=== PATIENT | female | born 1970 | race Caucasian/White ===

== ENCOUNTER 2017-03-05 12:33 | Inpatient (IN) | payer SELFPAY ==
[2017-03-05] VITALS (11 sets, daily range): BP systolic 103–117; BP diastolic 52–67; PULSE 62–102; RESP 16–20; TEMP 97.7–99; O2SAT 96–100
[~2017-03-05] VITALS: Ht 170.2 cm; Wt 63.9 kg
[2017-03-05] MEDS ORDERED: SODIUM CHLOR 0.9% 1000 ML INJ 1,000 ML IV ONE (13:30)
[2017-03-05 13:46] LABS: AUTOMATED NEUTROPHIL # 2.4 TH/MM3 (1.8-7.7); BASOPHIL # 0.1 TH/MM3 (0-0.2); BASOPHIL % 1.7 % (0.0-2.0); EOSINOPHIL # 0.3 TH/MM3 (0-0.4); HEMATOCRIT 22.4 % (35.0-46.0); LYMPHOCYTE # 2.4 TH/MM3 (1.0-4.8); MEAN CELL VOLUME 66.8 FL (80.0-100.0); MEAN CORPUSCULAR HEMOGLOBIN 20.2 PG (27.0-34.0); MEAN CORPUSCULAR HGB CONC 30.3 % (32.0-36.0); MONO % 7.7 % (0.0-8.0); NEUT % 42.6 % (16.0-70.0); PLATELET COUNT 246 TH/MM3 (150-450); RED BLOOD COUNT 3.36 MIL/MM3 (4.00-5.30); RED CELL DISTRIBUTION WIDTH 20.6 % (11.6-17.2); WHITE BLOOD COUNT 5.6 TH/MM3 (4.0-11.0)
[2017-03-05 13:49] LABS: HEMO FLAGS DIFF FINAL
[2017-03-05] MEDS ORDERED: SODIUM CHLOR 0.9% 250 ML INJ 250 ML IV ONE (14:00)
[2017-03-05 14:05] LABS: ALT (GPT) 19 U/L (10-53); ANION GAP 12 MEQ/L (5-15); AST (GOT) 22 U/L (15-37); BICARBONATE 23.2 MEQ/L (21.0-32.0); BLOOD UREA NITROGEN 4 MG/DL (7-18); CHLORIDE 91 MEQ/L (98-107); GLOMERULAR FILTRATION RATE 122 ML/MIN (>89); POTASSIUM 3.5 MEQ/L (3.5-5.1); SODIUM (NA) 126 MEQ/L (136-145)
[2017-03-05 14:07] LABS: ALKALINE PHOSPHATASE 73 U/L (45-117); TOTAL BILIRUBIN ADULT 0.3 MG/DL (0.2-1.0)
--- NOTE | 2017-03-05 14:36 | PD ---
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 She says she has had bleeding for the past 2 months. She says since last night, she has used 40 pads and 18 tampons. She says she feels lightheaded when standing. She says she does feel her heart racing. She denies any pain. She has required 2 blood transfusions in the past due to heavy bleeding. She does not have a hand cementer due to insurance issues. FORMERLY [facility] Past Medical History Medical History: Denies Significant Hx Diminished Hearing: No Tetanus Vaccination: > 5 Years Influenza Vaccination: No ?: Not LMP: 03/05/17 Past Surgical History Gynecologic Surgery: Yes (OVERY REMOVAL) Social History Alcohol Use: Yes (2 BEERS DAILY) Tobacco Use: Yes (1/2 PPD) Substance Use: No Allergies-Medications (Allergen,Severity, Reaction): Coded Allergies: No Known Allergies (Unverified , 03/05/17) Review of Systems Except as stated in HPI: all other systems reviewed are Neg General / Constitutional: No: Fever, Chills Eyes: No: Blurred Vision HENT: Positive: Lightheadedness, No: Headaches Cardiovascular: Positive: Palpitations Respiratory: No: Shortness of Breath Gastrointestinal: No: Nausea, Vomiting, Abdominal Pain Genitourinary: Positive: Vaginal Bleeding Skin: No Rash, No Change in Pigmentation Neurologic: Positive: Weakness, Dizziness Physical Exam Narrative GENERAL: Awake and alert, in no acute distress. SKIN: Focused skin assessment warm/dry. HEAD: Atraumatic. Normocephalic. EYES: Pupils equal and round. No scleral icterus. Conjunctival pallor. ENT: Mucous membranes pink and moist. NECK: Trachea midline. No JVD. CARDIOVASCULAR: Tachycardia. No murmur appreciated. RESPIRATORY: No accessory muscle use. Clear to auscultation. Breath sounds equal bilaterally. GASTROINTESTINAL: Abdomen soft, non-tender, nondistended. : Performed in the presence of a female nurse. Cervical polyp present. Blood in the vaginal vault. Mild bleeding from the os. MUSCULOSKELETAL: No obvious deformities. No clubbing. No cyanosis. No edema. NEUROLOGICAL: Awake and alert. No obvious cranial nerve deficits. Motor grossly within normal limits. Normal speech. PSYCHIATRIC: Appropriate mood and affect; insight and judgment normal. Data Data Last Documented VS Vital Signs Date Time Temp Pulse Resp B/P Pulse Ox O2 Delivery O2 Flow Rate FiO2 03/05/17 14:00 83 16 113/57 96 Room Air 03/05/17 12:35 97.7 Orders Complete Blood Count With Diff (03/05/17 13:17) Comprehensive Metabolic Panel (03/05/17 13:17) Iv Access Insert/Monitor (03/05/17 13:17) Sodium Chlor 0.9% 1000 Ml Inj (Ns 1000 M (03/05/17 13:30) Type And Screen (03/05/17 13:19) Ed Urine Pregnancytest Poc (03/05/17 13:19) Red Blood Cells (Rbc) (03/05/17 13:58) Blood Product Administration .UPON TRANSFUSION (03/05/17 13:58) Sodium Chlor 0.9% 250 Ml Inj (Ns 250 Ml (03/05/17 14:00) Labs Laboratory Tests Test 03/05/17 13:30 White Blood Count 5.6 TH/MM3 Red Blood Count 3.36 MIL/MM3 Hemoglobin 6.8 GM/DL Hematocrit 22.4 % Mean Corpuscular Volume 66.8 FL Mean Corpuscular Hemoglobin 20.2 PG Mean Corpuscular Hemoglobin 30.3 % Concent Red Cell Distribution Width 20.6 % Platelet Count 246 TH/MM3 Mean Platelet Volume 7.4 FL Neutrophils (%) (Auto) 42.6 % Lymphocytes (%) (Auto) 43.0 % Monocytes (%) (Auto) 7.7 % Eosinophils (%) (Auto) 5.0 % Basophils (%) (Auto) 1.7 % Neutrophils # (Auto) 2.4 TH/MM3 Lymphocytes # (Auto) 2.4 TH/MM3 Monocytes # (Auto) 0.4 TH/MM3 Eosinophils # (Auto) 0.3 TH/MM3 Basophils # (Auto) 0.1 TH/MM3 CBC Comment DIFF FINAL Differential Comment Sodium Level 126 MEQ/L Potassium Level 3.5 MEQ/L Chloride Level 91 MEQ/L Carbon Dioxide Level 23.2 MEQ/L Anion Gap 12 MEQ/L Blood Urea Nitrogen 4 MG/DL Creatinine 0.54 MG/DL Estimat Glomerular Filtration 122 ML/MIN Rate Random Glucose 81 MG/DL Calcium Level 8.1 MG/DL Total Bilirubin 0.3 MG/DL Aspartate Amino Transf 22 U/L (AST/SGOT) Alanine Aminotransferase 19 U/L (ALT/SGPT) Alkaline Phosphatase 73 U/L Total Protein 6.4 GM/DL Albumin 3.1 GM/DL Blood Type O POSITIVE MDM Medical Decision Making Medical Screen Exam Complete: Yes Emergency Medical Condition: Yes Differential Diagnosis anemia vs dysmenorrhea vs dehydration Narrative Course Patient is a 47-year-old female who comes in complaining of vaginal bleeding. Exam shows a cervical polyp. IV established, labs sent. Labs show hemoglobin of 6.8. Patient given IV fluids and transfused 2 units of blood. She'll be admitted for further management. Diagnosis Primary Impression: Vaginal bleeding Additional Impression: Anemia Qualified Code: D64.9 - Anemia, unspecified type Admitting Information Admitting Physician Requests: Admit Condition: Stable Marla Blakely MD Mar 05, 2017 14:36
[2017-03-05] MEDS ORDERED: IBUP200T2 PO (14:55)
[2017-03-05] MEDS ORDERED: HYDR-3533 PO (14:55)
[2017-03-05] MEDS ORDERED: SILVER NITR/POTASSIUM NITRATE APPLICATORS TOPICAL ONE (15:15)
[2017-03-05] MEDS ORDERED: SILVER NITR/POTASSIUM NITRATE APPLICATORS ONE (15:20)
--- NOTE | 2017-03-05 15:59 | HHI.HP ---
HPI Chief Complaint Abnormal vaginal bleeding Date Seen: Mar 05, 2017 Travel History International Travel<30 Days: No Contact w/Intl Traveler<30Days: No Known Affected Area: No History of Present Illness HPI Patient is 47-year-old white female who presents to the main ER today with abnormal uterine bleeding. She's been bleeding heavily last several days passing large clots fist size and feeling weak. Patient states that she's almost never had a regular monthly cycle she's always had irregular bleeding and that the she will bleed almost and the continually at times and she has bled daily for the last 2 months of some days very little some days a lot ,. Was admitted 4 or 5 years ago for anemia for the same thing received blood transfusion and she's not had that happen since. She's having only very minimal discomfort she describes is uncomfortable no real pain, last SANITATION OFFICER exam and Pap smear was also 5 years ago, states she had a cervical polyp the back at that time and it was removed and at that time they saw another polyp was very small and it did not remove it .Today the ER doctor saw a polyp as well. Patient's hemoglobin is a little over 6 and she is ordered blood waiting to give Para: 2 : 2 History Past Medical History Narrative Medical Has a history of long-term abnormal uterine bleeding Medical History: Denies Significant Hx Obstetric History Obstetric History 2 vaginal deliveries Past Surgical History Narrative Surgical Patient had 1 ovary removed [she can't remember which one] when she was 16 years old for a cyst Social History Alcohol Use: Yes Tobacco Use: Yes Substance Abuse: No Allergies-Medications (Allergen,Severity, Reaction): Coded Allergies: No Known Allergies (Unverified , 03/05/17) Home Meds Reported Medications Hydrocodone-Acetaminophen (Lortab)5-325 Mg Tab0.5 Tab PO Q6H PRN (PAIN) Ref 0 03/05/17 Ibuprofen 200 Mg [id number] Mg PO DAILY PRN (CRAMPING) Ref 0 03/05/17 Review of Systems General / Constitutional: No: Fever, Weight Gain, Chills, Other Eyes: No: Diploplia, Blurred Vision, Visual changes, Pain, Photophobia HENT: No: Headaches, Vertigo, Lightheadedness Cardiovascular: No: Irregular Rhythm, Chest Pain or Discomfort, Palpitations, Tachycardia, Syncope, Varicosities, Edema, Cyanosis Respiratory: No: Cough, Short of Breath, Other Gastrointestinal: No: Nausea, Vomiting, Diarrhea Genitourinary: Vaginal Bleeding, No: Decreased Urinary Output, Oliguria Musculoskeletal: No: Limited ROM, Weakness, Cramping, Edema, Pain Skin: No Rash, No Itching, No Dryness, No Lumps, No Change in Pigmentation, No Change in Nails, No Alopecia, No Lesions Neurologic: No: Weakness, Dizziness, Syncope, Focal Abnormalities, Coordination Problem, Headache, Slurred Speech, Seizures Psychiatric: No: Depression, Suicidal Ideations, Homicidal Ideation Endocrine: No: Heat Intolerance, Cold Intolerance, Polydipsia, Polyuria, Other Physical Exam Vital Signs Date Time Temp Pulse Resp B/P Pulse Ox O2 Delivery O2 Flow Rate FiO2 03/05/17 14:00 83 16 113/57 96 Room Air 03/05/17 12:35 97.7 102 20 115/66 100 Room Air Narrative GENERAL: Well-nourished, well-developed patient. SKIN: Warm and dry. HEAD: Normocephalic and atraumatic. EYES: No scleral icterus. No injection or drainage. ENT: No nasal drainage noted. Mucous membranes pink. Airway patent. NECK: Supple, trachea midline. No JVD. CARDIOVASCULAR: Regular rate and rhythm without murmurs, gallops, or rubs. RESPIRATORY: Breath sounds equal bilaterally. No accessory muscle use. BREASTS: Bilateral exam showed no masses , no retractions, no nipple discharge. ABDOMEN/GI: Abdomen soft, non-tender, bowel sounds present, no rebound, no guarding has a well-healed Pfannenstiel incision External Genitalia: intact and normal in appearance There is a small amount of dark blood in the vagina Cervix: Cervix has a polyp at 12:00 that's approximate 1 cm in size and not inflamed smooth normal color A ring forcep used to grasp the polyp and with a twisting motion remove the polyp from the anterior cervix and this was sent to pathology, the base of this area was oozing some blood and some silver nitrate sticks used to achieve hemostasis. Bimanual exam the uterus is anteflexed normal size and minimally tender with no adnexal masses or fullness. Rectal exam was deferred ] EXTREMITIES: No cyanosis or edema. BACK: Nontender without obvious deformity. No CVA tenderness. NEUROLOGICAL: Awake and alert. Motor and sensory grossly within normal limits. Five out of 5 muscle strength in all muscle groups. Normal speech. Data Data Orders Complete Blood Count With Diff (03/05/17 13:17) Comprehensive Metabolic Panel (03/05/17 13:17) Iv Access Insert/Monitor (03/05/17 13:17) Sodium Chlor 0.9% 1000 Ml Inj (Ns 1000 M (03/05/17 13:30) Type And Screen (03/05/17 13:19) Ed Urine Pregnancytest Poc (03/05/17 13:19) Red Blood Cells (Rbc) (03/05/17 13:58) Blood Product Administration .UPON TRANSFUSION (03/05/17 13:58) Sodium Chlor 0.9% 250 Ml Inj (Ns 250 Ml (03/05/17 14:00) Admit Order (Ed Use Only) (03/05/17 ) Silver Nitrate Applicators (Silver Nitra (03/05/17 15:15) Silver Nitrate Applicators (Silver Nitra (03/05/17 15:20) Labs Laboratory Tests Test 03/05/17 03/05/17 03/05/17 13:30 13:58 15:10 White Blood Count 5.6 Red Blood Count 3.36 Hemoglobin 6.8 Hematocrit 22.4 Mean Corpuscular Volume 66.8 Mean Corpuscular Hemoglobin 20.2 Mean Corpuscular Hemoglobin 30.3 Concent Red Cell Distribution Width 20.6 Platelet Count 246 Mean Platelet Volume 7.4 Neutrophils (%) (Auto) 42.6 Lymphocytes (%) (Auto) 43.0 Monocytes (%) (Auto) 7.7 Eosinophils (%) (Auto) 5.0 Basophils (%) (Auto) 1.7 Neutrophils # (Auto) 2.4 Lymphocytes # (Auto) 2.4 Monocytes # (Auto) 0.4 Eosinophils # (Auto) 0.3 Basophils # (Auto) 0.1 CBC Comment DIFF FINAL Differential Comment Sodium Level 126 Potassium Level 3.5 Chloride Level 91 Carbon Dioxide Level 23.2 Anion Gap 12 Blood Urea Nitrogen 4 Creatinine 0.54 Estimat Glomerular Filtration 122 Rate Random Glucose 81 Calcium Level 8.1 Total Bilirubin 0.3 Aspartate Amino Transf 22 (AST/SGOT) Alanine Aminotransferase 19 (ALT/SGPT) Alkaline Phosphatase 73 Total Protein 6.4 Albumin 3.1 Blood Type O POSITIVE O POSITIVE Antibody Screen NEGATIVE Crossmatch Leukocyte-Reduced Red Blood Cells Blood Bank Comment Assessment/Plan Assessment and Plan 47-year-old white female with long history of abnormal uterine bleeding now with excessive vaginal bleeding the point of anemia hemoglobin of 6.8 patient is admission for blood transfusion, will observe for bleeding right now not bleeding actively if bleeding is moderately excessive will give IV Premarin. Will check ultrasound of the uterus and adnexa, will check CBC in the morning Parvez Argueta II, MD Mar 05, 2017 15:59
[2017-03-05] MEDS ORDERED: ACETAMINOPHEN/HYDROcodone 325 MG/5 MG TAB PO PRN (16:15)
[2017-03-05] MEDS ORDERED: ONDANSETRON HCL 4 MG/2 ML VIAL IV PUSH PRN (16:15)
[2017-03-05] MEDS: FERROUS SULFATE 325 MG (65 MG ELEMENTAL IRON) TAB PO SCH (18:00)
[2017-03-06] VITALS: BP 106/55; PULSE 80; RESP 16; TEMP 98; O2SAT 98
[2017-03-06 04:00] VITALS: BP 102/58; PULSE 76; RESP 17; TEMP 98.8; O2SAT 99
[2017-03-06 08:14] LABS: AUTOMATED NEUTROPHIL # 3.3 TH/MM3 (1.8-7.7); BASOPHIL # 0.1 TH/MM3 (0-0.2); BASOPHIL % 0.9 % (0.0-2.0); EOSINOPHIL # 0.2 TH/MM3 (0-0.4); EOSINOPHIL % 3.3 % (0.0-4.0); HEMATOCRIT 27.7 % (35.0-46.0); HEMO FLAGS DIFF FINAL; LYMPH % 33.6 % (9.0-44.0); LYMPHOCYTE # 2.1 TH/MM3 (1.0-4.8); MEAN CELL VOLUME 71.5 FL (80.0-100.0); MEAN CORPUSCULAR HEMOGLOBIN 23.3 PG (27.0-34.0); MEAN CORPUSCULAR HGB CONC 32.6 % (32.0-36.0); MONO % 9.3 % (0.0-8.0); NEUT % 52.9 % (16.0-70.0); PLATELET COUNT 223 TH/MM3 (150-450); RED BLOOD COUNT 3.87 MIL/MM3 (4.00-5.30); RED CELL DISTRIBUTION WIDTH 23.2 % (11.6-17.2); WHITE BLOOD COUNT 6.3 TH/MM3 (4.0-11.0)
[2017-03-06 08:23] LABS: APTT (PATIENT) 24.3 SEC (24.3-30.1)
--- NOTE | 2017-03-06 08:24 | HHI.PR ---
Subjective Remarks Hospital day 2 Patient feels better more energy and color in her face after 2 units of blood given last night. hemoglobin and hematocrit now 9 and 27.7 Patient states her bleeding has decreased and since the last shift she's stained 5 pads but not heavily just lightly stained those Exam-abdomen is flat nontender, on checking her peripads have very minimal amount of red blood on it Ultrasound is coming in [place] do her transvaginal scan of the uterus this morning Impression is abnormal uterine bleeding improved somewhat with blood transfusion and hospitalization Plan--check ultrasound findings, will give 1 dose of IV Premarin this morning 25 mg , and very likely discharge home this afternoon amygdala 10 day course of 10 mg Provera, patient is a smoker and is not a good candidate for longer term estrogen therapy in the form of control pill that could give her cycle control. She could benefit from a Mirena IUD to help control bleeding as well as provide control or they could be that the patient would do better be suited with endometrial ablation however since of she's had some bleeding issue and she is 47 years old if significant tissue seen on ultrasound and endometrial biopsy also be indicated. Patient arrived when Dr. 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 Skinner as an outpatient. Also discharged home on iron twice a day with meals Objective Vital Signs Date Time Temp Pulse Resp B/P Pulse Ox O2 Delivery O2 Flow Rate FiO2 03/06/17 04:00 98.8 76 17 102/58 99 03/06/17 00:00 98.0 80 16 106/55 98 03/05/17 20:00 98.7 81 16 109/52 99 03/05/17 18:58 98.9 74 16 111/52 99 03/05/17 18:37 98.9 78 16 111/55 98 03/05/17 18:12 72 16 112/62 99 03/05/17 18:00 98.4 74 16 117/67 98 Room Air 03/05/17 17:30 98.8 74 16 108/60 98 Room Air 03/05/17 17:05 98.8 87 16 114/60 98 Room Air 03/05/17 16:52 99.0 81 16 103/54 97 Room Air 03/05/17 16:00 98.8 62 16 114/60 99 Room Air 03/05/17 14:00 83 16 113/57 96 Room Air 03/05/17 12:35 97.7 102 20 115/66 100 Room Air I/O 03/05/17 03/05/17 03/05/17 03/06/17 03/06/17 03/06/17 07:00 15:00 23:00 07:00 15:00 23:00 Intake Total 730 ml 240 ml Balance 730 ml 240 ml Intake Oral 480 ml 240 ml Packed Cells 250 ml # Voids 5 4 # Sanitary Pads 4 Pads 0 Pads 2 Pads 2 Pads Result Diagram: 03/06/17 0624 03/05/17 1330 Parvez Argueta II, MD Mar 06, 2017 08:24
[2017-03-06] MEDS ORDERED: ESTROGENS CONJUGATED 25 MG/5 ML VIAL IM ONE (08:30)
[2017-03-06 08:46] VITALS: BP 117/57; PULSE 73; RESP 20; TEMP 97.4; O2SAT 100
[2017-03-06] MEDS: FERROUS SULFATE 325 MG (65 MG ELEMENTAL IRON) TAB PO SCH ×2 (11:05→17:46)
--- NOTE | 2017-03-06 11:47 | RADRPT ---
EXAM DATE/TIME: 03/06/2017 09:00 [place] COMPARISON: No previous studies available for comparison. INDICATIONS : Bleeding. MEDICAL HISTORY : Neck pain. Claustrophobia. SURGICAL HISTORY : 2 teeth pulled. Right oophorectomy. ENCOUNTER: Initial ACUITY: 2 months PAIN SCORE: 0/10 LOCATION: Bilateral pelvis MEASUREMENTS: UTERUS: 9.2 x 5.3 x 5.0 cm ENDOMETRIAL STRIPE: 9 mm RIGHT OVARY: cm Surgically absent LEFT OVARY: 2.6 x 2.0 x 1.6 cm FINDINGS: UTERUS: Of 2 small myometrial masses are noted. The largest measure 2.6 and 1.9 cm and are located within the uterine fundus. 9 mm. RIGHT OVARY: Surgically removed. LEFT OVARY: 1.5 cm cyst is identified in the left ovary which otherwise has normal appearance. Ovary contains no spacious mass or significant cystic lesion. MISCELLANEOUS: No free fluid. CONCLUSION: 1. Multiple myometrial masses consistent with leiomyomas. 2. Mild endometrial thickening measuring 9 mm. 3. Surgically removed right ovary. 4. 1.5 cm simple left ovary and cyst. Neil Edwards MD on March 06, 2017 at 11:42 Board Certified Radiologist. This report was verified electronically.
[2017-03-06 12:00] VITALS: BP 111/59; PULSE 78; RESP 19; TEMP 97.5; O2SAT 100
[2017-03-06 16:20] VITALS: BP 115/53; PULSE 73; RESP 20; TEMP 96.3; O2SAT 98
[2017-03-06 19:40] VITALS: BP 101/60; PULSE 70; RESP 18; TEMP 98.5; O2SAT 99
[2017-03-07] VITALS: BP 108/53; PULSE 73; RESP 17; TEMP 97.9; O2SAT 99
[2017-03-07 04:00] VITALS: BP 112/55; PULSE 69; RESP 16; TEMP 97.8; O2SAT 100
[2017-03-07] MEDS ORDERED: PROV10TA PO (07:19)
[2017-03-07] MEDS ORDERED: FERR325T20 PO (07:19)
--- NOTE | 2017-03-07 07:19 | HHI.DCPOC ---
Discharge Care Plan Diagnosis: (1) Vaginal bleeding (2) Anemia Report Symptoms to Your Doctor -Temperature above 100.5 degrees -Redness, of incision or excessive or foul smelling drainage -Unusual pain or calf pain -Increased vaginal bleeding -Painful or difficulty urinating -Feelings of extreme sadness or anxiety after 2 weeks Goals to Promote Your Health * To prevent worsening of your condition and complications * To maintain your health at the optimal level Directions to Meet Your Goals Take your medications as prescribed Follow your dietary instruction Follow activity as directed Ensure plenty of rest for recovery Drink fluids for hydration Keep your appointments as scheduled Take your immunizations and boosters as scheduled If your symptoms worsen call your PCP, if no PCP go to Urgent Care Center or Emergency Room Smoking is Dangerous to Your Health. Avoid second hand smoke Call the 24-hour crisis hotline for domestic abuse at Santosh Bansal MD R1 Mar 07, 2017 07:19 Lay Domínguez MD Mar 07, 2017 10:16
[2017-03-07 08:00] VITALS: BP 139/58; PULSE 82; RESP 15; TEMP 98.4; O2SAT 99
--- NOTE | 2017-03-07 09:06 | HHI.PR ---
TRACK INSPECTING SUPERVISOR Note Note Subjective 47-year-old female admitted for vaginal bleeding and anemia. This morning, she notes no additional concerns and states that her bleeding is significantly decreased. Objective Vital Signs Date Time Temp Pulse Resp B/P Pulse Ox O2 Delivery O2 Flow Rate FiO2 03/07/17 08:00 98.4 82 15 139/58 99 03/06/17 11:24 21 03/05/17 18:00 Room Air INTAKE & OUTPUT 03/07/17 03/07/17 03/07/17 07:00 15:00 23:00 Intake Total 480 ml Balance 480 ml Current Medications Medications (Trade) Dose Ordered Sig/Brittanie Route PRN Reason Start Time Stop Time Status Last Admin Dose Admin Sodium Chloride 1,000 ml @ 999 mls/hr BOLUS ONCE IV 03/05/17 13:30 03/05/17 14:30 DC 03/05/17 13:45 Sodium Chloride (NS 250 ml Inj) 250 ml @ 15 mls/hr ONCE ONCE IV 03/05/17 14:00 03/06/17 06:39 DC 03/05/17 15:39 Silver Nitrate/ Potassium Nitrate (Silver Nitrate Applicators) 1 appl ONCE ONCE TOPICAL 03/05/17 15:15 03/05/17 15:16 DC 03/05/17 15:36 Silver Nitrate/ Potassium Nitrate (Silver Nitrate Applicators) 1 appl STK-MED ONCE .ROUTE 03/05/17 15:20 03/05/17 15:21 DC Ferrous Sulfate (Ferrous Sulfate) 325 mg BIDPC PO 03/05/17 18:00 03/06/17 17:46 Ondansetron HCl (Zofran Inj) 4 mg Q6H PRN IV PUSH NAUSEA OR VOMITING 03/05/17 16:15 Acetaminophen/ Hydrocodone Bitart ([place] 5-325 Mg) 1 tab Q4H PRN PO PAIN SCALE 6 TO 10 03/05/17 16:15 03/06/17 11:18 Estrogens Conjugated (Premarin Inj) 25 mg ONCE ONCE IM 03/06/17 08:30 03/06/17 08:35 DC 03/06/17 11:06 GENERAL: Well-developed, well-nourished adult white female sitting up in bed in no acute distress SKIN: No rashes, ecchymoses or lesions. Cool and dry. HEAD: NC/AT EYES: PERRL. EOMI. No conjunctival injection or drainage. CARDIOVASCULAR: NRRR. Normal S1/S2. No MRG RESPIRATORY: CTAB. No crackles or wheezes. GASTROINTESTINAL: Abdomen soft, non-distended, non-tender. No hepato- splenomegaly or palpable masses. MUSCULOSKELETAL: Extremities without clubbing, cyanosis, or edema. NEUROLOGICAL: Awake and alert. Cranial nerves II through XII grossly intact. Moves all extremities without difficulty. Normal speech. Assessment and plan 47-year-old female presenting for anemia secondary to vaginal bleeding #1 vaginal bleeding Decreased significantly since admission, status post progestin and 2 units packed red blood cells - Follow up as an outpatient with Dr. Skinner - Discharge with hemoglobin ranging stable this morning - Likely will need endometrial biopsy as an outpatient - Discharge with Provera 10 mg daily for 10 days and iron supplementation #2 anemia Secondary to vaginal bleeding Treat as above sdw Dr. Domínguez (Santosh Bansal MD R1) Note Patient perimenopausal with DUB and anemia. Required blood transfusion and was given IV Estrogen. Bleeding has now resolved/scant per patient for last 24 hours. Hgb stable. Asymptomatic at this time. Reviewed US with patient. 2 Small fibroids probably incidental. Endometrial stipe 9mm. Patient will f/u with Dr. Skinner, PROTECTOR PLATE ATTACHER for office consultation and EMB or D&C and to discuss options and treatment. Patient will d/c home with iron and Provera 10mg. patient seen and examined. Discussed with Dr. Dolan and Dr. Bansal. (Lay Domínguez MD) Santosh Bansal MD R1 Mar 07, 2017 09:06 Lay Domínguez MD Mar 07, 2017 10:16
[2017-03-07] MEDS: FERROUS SULFATE 325 MG (65 MG ELEMENTAL IRON) TAB PO SCH (09:37)
[2017-03-07 10:00] LABS: HEMATOCRIT 29.1 % (35.0-46.0); MEAN CELL VOLUME 73.3 FL (80.0-100.0); MEAN CORPUSCULAR HEMOGLOBIN 22.8 PG (27.0-34.0); MEAN CORPUSCULAR HGB CONC 31.2 % (32.0-36.0); PLATELET COUNT 228 TH/MM3 (150-450); RED BLOOD COUNT 3.97 MIL/MM3 (4.00-5.30); RED CELL DISTRIBUTION WIDTH 23.3 % (11.6-17.2); REVIEW FLAG FINAL; WHITE BLOOD COUNT 7.4 TH/MM3 (4.0-11.0)
== END 2017-03-07 12:08 | disposition home or self-care (01) | DRG 761 ==
LOC: NEPD 12:33 → NEDA 15:15 → HOCA 18:04
PROVIDERS: ADMIT Obstetrics & Gynecology Maternal & Fetal Medicine; ATTEND Obstetrics & Gynecology Maternal & Fetal Medicine
PROC: 30233N1 Transfusion of Nonautologous Red Blood Cells into Peripheral Vein, Percutaneous Approach (ICD-10-PCS; principal; 2017-03-05)
DX: N93.8 Other specified abnormal uterine and vaginal bleeding (principal); D25.9 Leiomyoma of uterus, unspecified; D50.0 Iron deficiency anemia secondary to blood loss (chronic); F17.210 Nicotine dependence, cigarettes, uncomplicated; N84.1 Polyp of cervix uteri
CPT/HCPCS: 36430; 76830; 76856; 80053; 84443; 84703; 85025; 85027; 85610; 85730; 86850; 86900; 86901; 86920; 88304; 88305; 96360; J1410; J7030; J7050; P9016